=== PATIENT | female | born 1990 | race Caucasian/White ===

== ENCOUNTER → 2018-09-18 | Outpatient (CLI) | payer OTHER ==
[~2018-09-18] MED LIST: ? ANTIDEPRESSANT; ETOD400 PO; HYDACE5 PO; IBUP600 PO; MEDR150I IM
== END ==
LOC: LAB SHORT 07:54 → PLD 07:54
DX: R87.613 High grade squamous intraepithelial lesion on cytologic smear of cervix (HGSIL) (principal)
CPT/HCPCS: 88305

== ENCOUNTER 2022-07-19 08:23 | Day surgery (SDC) | payer OTHER ==
[~2022-07-19] VITALS: Ht 180.3 cm; Wt 98.2 kg
[2022-07-19] MEDS ORDERED: PROG100 PO (09:24)
[2022-07-19] MEDS ORDERED: OMEP20ER PO (09:24)
[2022-07-19] MEDS ORDERED: Adipex-P37.5 MG PO (09:25)
--- NOTE | 2022-07-19 10:19 | NUR ---
07/19/22 1019 Mery Nguyễn 5ML OF NACL ADDED TO 5ML LIDOCAINE 2% WITH EPI 1:100,000 TO CREATE A LOCAL SOLUTION OF LIDOCAINE 1% WITH EPI 1:200,000.
--- NOTE | 2022-07-19 11:41 | NUR ---
07/19/22 1141 Mariann James PT UP IN RECLINER. C/O FEELING REALLY HOT SINCE SHORTLY AFTER ARRIVAL TO STEPDOWN. REPORTS SHE ALWAYS FEELS HOT. COOL WASHCLOTHS PLACED ON PATIENT'S FOREHEAD AND CHEST AND ICE PACK PLACED BEHIND NECK. SHE REPORTS THESE HELPED A LITTLE BIT. WHEN ASKED WHAT USUALLY HELPS WHEN SHE IS HOT, SHE REPORTS AC HELPS. PT GIVEN ICE WATER AND POPSICLE AND DRANK/ATE THESE WITHOUT ANY PROBLEMS.
[2022-07-19 11:47] VITALS: BP 141/81
== END 2022-07-19 11:59 | disposition home or self-care (01) ==
LOC: ORSCSDS 08:23
PROVIDERS: Otolaryngology
PROC: 0CTPXZZ Resection of Tonsils, External Approach (ICD-10-PCS; principal; 2022-07-19 10:00)
PROC: 09SL0ZZ Reposition Nasal Turbinate, Open Approach (ICD-10-PCS; principal; 2022-07-19 10:00)
DX: J35.01 Chronic tonsillitis (principal); J34.3 Hypertrophy of nasal turbinates; G47.33 Obstructive sleep apnea (adult) (pediatric); K21.9 Gastro-esophageal reflux disease without esophagitis; Z79.899 Other long term (current) drug therapy
CPT/HCPCS: 88304; A9270; J0171; J2250; J2704; J3010; J7120

== ENCOUNTER → 2023-02-07 | Outpatient (CLI) | payer OTHER ==
[~2023-02-07] MED LIST changes: +Adipex-P37.5 MG PO; +OMEP20ER PO; +PROG100 PO
[2023-02-09 16:09] LABS: HPV 16 Negative (Negative); HPV 18 Negative (Negative); HPV OTHER HR TYPES Negative (Negative)
[2023-02-10 04:10] LABS: CHLAMYDIA BY NAA Negative (Negative); GONOCOCCUS BY NAA Negative (Negative); TRICH VAG BY NAA Negative (Negative)
== END | disposition home or self-care (01) ==
LOC: LAB 12:00 → LAB SHORT 12:00
PROVIDERS: Registered Nurse Community Health
DX: Z11.3 Encounter for screening for infections with a predominantly sexual mode of transmission (principal); Z87.42 Personal history of other diseases of the female genital tract
CPT/HCPCS: 87491; 87591; 87624; 87661; G0145